=== PATIENT | female | born 1935 | race Caucasian/White ===

== ENCOUNTER → 2018-01-14 | Outpatient (CLI) | payer MEDICARE, BC | LOC: SL 20:21 | PROVIDERS: ATTEND Internal Medicine Pulmonary Disease | DX: G47.30 Sleep apnea, unspecified (principal) ==

== ENCOUNTER 2018-06-07 04:58 | Emergency (ER) | payer MEDICARE, BC ==
[2018-06-07] MEDS ORDERED: ASPIRIN TABLET 325 MG TAB PO ONE (05:09)
[2018-06-07] MEDS ORDERED: SODIUM CHLORIDE 0.9% (FLUSH) 10 ML SYG IV PRN (05:09)
[2018-06-07] MEDS ORDERED: AMIODARONE HCL 150 MG/3 ML VIAL IVPB ONE (05:14)
[2018-06-07] MEDS ORDERED: SODIUM CHLORIDE 0.9% 100ML 100 ML IVPB ONE (05:14)
[2018-06-07] MEDS ORDERED: AMIODARONE IV (LOAD) 150 MG in DEXTROSE 5% 100ML 100 ML IVPB ONE (05:21)
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
[2018-06-07] MEDS ORDERED: NOREPINEPHRINE BITARTRATE 4 MG in DEXTROSE 5% 250ML 250 ML IVPB SCH (05:30)
[2018-06-07] MEDS ORDERED: EPINEPHrine INJ 0.1 MG/ML 10 ML SYG ONE (05:30)
[2018-06-07 05:46] VITALS: TEMP 95.5
--- NOTE | 2018-06-07 05:58 | RAD ---
EXAM: AP CHEST RADIOGRAPH CLINICAL INDICATION: Cardiac arrest. COMPARISON: No comparisons are currently available. FINDINGS: The patient has been intubated with endotracheal tube tip 4.2 cm above the osman. Asymmetric right basilar consolidation. Bones appear intact on this single view. Tiny right apical pneumothorax. No pleural effusions. IMPRESSION: Endotracheal tube tip is 4.2 cm above the osman. Subtle right basilar consolidation. Tiny right apical pneumothorax. Discussed with Dr. Cardenas on 06/07/2018 at 0556 hours central time. Electronically signed by: Loki Ring MD 06/07/2018 5:57 AM CDT
[2018-06-07] MEDS ORDERED: HEPARIN PREMIX 25,000 UNITS in PREMIX BAG 1 BAG IVS ONE (06:12)
[2018-06-07] MEDS ORDERED: HEPARIN PREMIX 25,000 UNITS in PREMIX BAG 1 BAG IVS SCH (06:15)
[2018-06-07 07:09] VITALS: BP 91/56; O2SAT 94
== END 2018-06-07 07:10 | disposition short-term general hospital (02) ==
LOC: ER 04:58
DX: I46.9 Cardiac arrest, cause unspecified (principal); I95.0 Idiopathic hypotension; R79.89 Other specified abnormal findings of blood chemistry; J44.9 Chronic obstructive pulmonary disease, unspecified; I10 Essential (primary) hypertension; Z98.61 Coronary angioplasty status; Z88.0 Allergy status to penicillin
CPT/HCPCS: 36600; 71045; 80048; 80076; 81001; 82550; 82553; 82803; 82805; 83880; 84484; 85025; 85379; 85610; 85730; 93005; 94002; 94760; 94770; J0282; J1644; J7050; J7060